=== PATIENT | male | born 1990 | race Hispanic/Latino ===

== ENCOUNTER 2023-12-17 12:55 | Emergency (ER) | payer OTHER, SELFPAY ==
[2023-12-17 12:57] VITALS: BP 137/82; PULSE 109; RESP 16; TEMP 36.6; O2SAT 100; BMI 24.0
--- NOTE | 2023-12-17 13:10 | EDS_ITS ---
HPI History of Present Illness Chief Complaint: Head Injury [facility] Home Medications ?Medication ?Instructions ?Recorded ?Last Taken ?Type hydrocodone-acetaminophen 5-325mg 1 tab PO Q4H PRN PRN Pain 07/09/17 07/09/17 History 5mg-325mg sulfamethoxazole 800 2 tab PO DAILY 07/09/17 07/09/17 History mg-trimethoprim 160 mg tablet Allergy/AdvReac Type Severity Reaction Status Date / Time No Known Allergies Allergy Unverified 07/09/17 10:03 Social History (Updated 07/12/17 @ 17:39 by CHERYL Cardenas) Smoking Status: Never smoker EXAM Physical Exam Const Vital Signs: 12/17/23 12:57 12/17/23 13:07 Temperature 97.8 F Temperature Source Temporal Pulse Rate 109 H Respiratory Rate 16 Respiratory Effort Normal Non-Labored Respiratory Depth Normal Respiratory Pattern Normal Blood Pressure 137/82 H Blood Pressure Mean 100 Pulse Ox 100 Oxygen Delivery Method Room Air Room Air MDM MDM MDM Narrative Medical decision making narrative: HISTORY OF PRESENT ILLNESS: 33-year-old male here with head trauma notes a pallet fell on his head prior to arrival. REVIEW OF SYSTEMS: Pertinent positives: [] Pertinent negatives: [] PHYSICAL EXAM: Nursing triage notes reviewed, Vital signs reviewed Constitutional: please see mdm HENT: MMM Eyes: Pupils equal round and reactive to light, Extraocular muscles intact Neck: No stridor, no JVD, full neck ROM Lungs: Clear to auscultation, No wheezing or rales. No increased work of breathing, no conversational dyspnea, no accessory muscle use, no nasal flaring. No respiratory distress noted Heart: Regular rate and rhythm, No murmurs, No rubs and No gallops, 2+ distal pulses (radial, femoral, posterior tibial) in all extremities Abdomen: Soft, there is no tenderness, rigidity, rebound or guarding, no obvious peritoneal signs, no palpable pulsatile abdominal masses, no auscultated abdominal bruit : No CVAT Extremities: No edema Neuro: No focal neurological deficits, cranial nerves II through XII intact, 5/5 strength in all extremities. Intact sensation to light touch in all extremities, 2+ reflexes bilateral patella tendons. Normal gait. No ataxia. Skin: No rash or lesions noted MEDICAL DECISION MAKING: Chief Complaint: [] External records reviewed: [] Factors affecting care: none [] Social determinants of health: none [] History obtained from others: none [] Consults: none [] MDM Narrative: [] I considered the following differential diagnosis: [] ALL IMAGES (IF OBTAINED) HAVE BEEN PERSONALLY REVIEWED AND INTERPRETED BY MYSELF. [] The patient and/or family, caregivers express understanding. The patient and/or family, caregivers agrees with the plan. Shared decision making: I will have a discussion with the patient and or visitors regarding risk/benefits of further testing or admission. They will be made aware of of the risk/benefits inherent in this decision they will be given the opportunity to voice understanding. Total critical care time today provided was at least 0 [] minutes. This excludes separately billable procedures. Critical care time (if documented) is secondary to the patient having high probability of clinically significant/life threatening deterioration in the patient's condition which required my urgent intervention. Impression: [] Dispo: [] This note was generated with [employer] dictation software. It may contain incorrect words, spelling, and punctuation that were not noted in review of the chart prior to signing. Discharge Plan Triage Chief Complaint: Head Injury ED Provider: Tigre Trinh Dx/Rx/DC Orders Prescriptions: No Action hydrocodone-acetaminophen 1 EACH tablet 1 tab PO Q4H PRN PRN (Reason: Pain) Patient Comments: take 1 tablet by mouth every 6 hours if needed for pain sulfamethoxazole-trimethoprim 1 EACH tablet 2 tab PO DAILY Patient Comments: take 2 tablets by mouth twice a day for 7 days Primary Care Provider: Care Physician,No Primary Referrals: Care Physician,No Primary [Primary Care Provider] - Print Language: Irish
--- NOTE | 2023-12-17 13:10 | EX.ED.GENINJ ---
HPI History of Present Illness Chief Complaint: Head Injury [facility] Medical History no medical history Home Medications ?Medication ?Instructions ?Recorded ?Last Taken ?Type hydrocodone-acetaminophen 5-325mg 1 tab PO Q4H PRN PRN Pain 07/09/17 07/09/17 History 5mg-325mg sulfamethoxazole 800 2 tab PO DAILY 07/09/17 07/09/17 History mg-trimethoprim 160 mg tablet Allergy/AdvReac Type Severity Reaction Status Date / Time No Known Allergies Allergy Unverified 07/09/17 10:03 Social History (Updated 07/12/17 @ 17:39 by Ted LUNA, CHERYL) Smoking Status: Never smoker EXAM Physical Exam Const Vital Signs: 12/17/23 12:57 12/17/23 13:07 Temperature 97.8 F Temperature Source Temporal Pulse Rate 109 H Respiratory Rate 16 Respiratory Effort Normal Non-Labored Respiratory Depth Normal Respiratory Pattern Normal Blood Pressure 137/82 H Blood Pressure Mean 100 Pulse Ox 100 Oxygen Delivery Method Room Air Room Air MDM MDM MDM Narrative Medical decision making narrative: HISTORY OF PRESENT ILLNESS: 33-year-old male here with head trauma notes a pallet fell on his head prior to arrival. Denies loss of consciousness. No vomiting. No focal weakness. Denies taking blood thinners. no seizures noted. REVIEW OF SYSTEMS: Pertinent positives: Headache Pertinent negatives: Syncope, vomiting, focal loss of sensation, numbness, weakness PHYSICAL EXAM: Nursing triage notes reviewed, Vital signs reviewed Primary Survey Airway: Intact Breathing: Bilateral breath sounds Circulation: Palpable bilateral femorals, Palpable bilateral radial, Palpable bilateral DP and Palpable bilateral PT Disability / Spine precautions GCS Score: Eye Openin Verbal Response: 5 Motor Response: 6 Secondary Survey Constitutional: Please see MDM Head: small abrasion noted to the crown of the head, no foreign bodies, midface stable, NO jaw malocclusion, No Cephalohematoma, and No Lacerations noted Eye: Pupils equal round and reactive to light, Extraocular muscles intact and No periorbital ecchymosis or stepoff, no evidence of entrapment ENT: Oropharynx clear, no lacerations, no hemotympanum, no raccoon eyes or marie sign Cervical spine / Neck: No cervical spine bony tenderness, crepitance, or stepoff deformity Trachea midline Lungs: Clear to auscultation, No asymmetric rise and No crepitus, no flail chest Cardiac: Regular rate and rhythm and No murmurs Abdomen: Soft, Nontender and No rebound Pelvis: Pelvis stable to compression : No evidence of genital injury Back: No alert and oriented x3, neuro exam at baseline, cranial nerves II through XII are intact. No pain with extraocular muscle movement. There is negative test of skew. 5 of 5 strength in upper and lower extremities in flexion extension. Intact sensation to light touch in upper and lower extremity dermatomes. No truncal or extremity ataxia. No dysdiadochokinesia. Normal gait. 2+ reflexes in upper and lower extremities. No meningeal signs. Negative Babinski. NIH of 0. Psych: Normal affect Nursing triage notes reviewed, Vital signs reviewed MEDICAL DECISION MAKING: Chief Complaint: Head trauma External records reviewed: No recent adVanced imaging of the brain Social determinants of health: [place]-speaking [facility] Narrative: Patient was initially mildly tachycardic otherwise afebrile and nontoxic-appearing. I considered the following differential diagnosis: ICH, cervical spine fracture, closed head injury Patient is greater than 16, is not on blood thinners, no seizure after injury, GCS was stable 2 hours postinjury, no depressed skull fracture, no evidence of basilar skull fracture, no vomiting. Age less than 65, no retrograde amnesia and mechanism is not dangerous. CT scan of the head is not indicated at this time. Wound was cleaned there is no obvious laceration no need for repair. Workmen's Compensation paperwork filled out. Concussion precautions were discussed in romanian. The patient and/or family, caregivers express understanding. The patient and/or family, caregivers agrees with the plan. Shared decision making: I will have a discussion with the patient and or visitors regarding risk/benefits of further testing or admission. They will be made aware of of the risk/benefits inherent in this decision they will be given the opportunity to voice understanding. Total critical care time today provided was at least 0 minutes. This excludes separately billable procedures. Critical care time (if documented) is secondary to the patient having high probability of clinically significant/life threatening deterioration in the patient's condition which required my urgent intervention. Impression: 1. Closed head injury 2. Concussion Dispo: Discharge This note was generated with [employer] dictation software. It may contain incorrect words, spelling, and punctuation that were not noted in review of the chart prior to signing. Discharge Plan Triage Chief Complaint: Head Injury ED Provider: Tigre Trinh Dx/Rx/DC Orders Instructions: Concussion Dc Prescriptions: No Action hydrocodone-acetaminophen 1 EACH tablet 1 tab PO Q4H PRN PRN (Reason: Pain) Patient Comments: take 1 tablet by mouth every 6 hours if needed for pain sulfamethoxazole-trimethoprim 1 EACH tablet 2 tab PO DAILY Patient Comments: take 2 tablets by mouth twice a day for 7 days Primary Care Provider: Care Physician,Mia Primary Referrals: Clinic,NOW [Non-Staff] - Activity Restrictions/Additional Instructions: Thank you for trusting us with your care today! Please take Tylenol (2 pills, 650 mg), ibuprofen (2 pills, 400 mg) every 6 hours as needed for pain and fever control. Please return to the emergency department if your symptoms change or worsen. Please follow with your primary care physician for further outpatient evaluation and management. Print Language: [place] Disposition Disposition: Home, Self Care Discharge Date/Time: 12/17/23 14:14
== END 2023-12-17 14:14 | disposition home or self-care (01) ==
LOC: ED 14:09
PROVIDERS: Emergency Provider Emergency Medicine; Visit Provider Emergency Medicine
DX: S06.0X0A Concussion without loss of consciousness, initial encounter (principal); W20.8XXA Other cause of strike by thrown, projected or falling object, initial encounter; Y99.0 Civilian activity done for income or pay
CPT/HCPCS: 99283